=== PATIENT | male | born 1940 | race Caucasian/White ===

== ENCOUNTER → 2017-08-15 | Outpatient (CLI) | payer OTHER ==
[~2017-08-15] MED LIST: CLINDAMYCIN HC300 MG PO; LAC PO; LEVOFLOXACIN500 M1 PO; METFORMIN HCL500 MG PO
== END | disposition home or self-care (01) ==
LOC: US 09:04
PROC: B54DZZZ Ultrasonography of Bilateral Lower Extremity Veins (ICD-10-PCS; principal; 2017-08-15)
PROC: B44HZZZ Ultrasonography of Bilateral Lower Extremity Arteries (ICD-10-PCS; 2017-08-15)
DX: M79.89 Other specified soft tissue disorders (principal)

== ENCOUNTER 2019-04-28 13:09 | Inpatient (IN) | payer OTHER ==
[~2019-04-28] VITALS: Ht 165.1 cm; Wt 77.8 kg
--- NOTE | 2019-04-28 13:13 | NUR ---
PT PLACED IN T1 FOR BEDSIDE TRIAGE.
--- NOTE | 2019-04-28 13:55 | NUR ---
PER PT FAMILY, PT LIVES ALONE AND WAS FOUND AT HOME AFTER HE HAD FALLEN AND HAS BEEN STAYING WITH FAMILY SINCE THEN.
[2019-04-28 13:57] LABS: BASOPHIL % 0.6 % (0-2); PLATELET COUNT 382 x10^3mcL (130-400); RED CELL DISTRIBUTION WIDTH 12.5 % (11.5-14.5)
--- NOTE | 2019-04-28 14:07 | NUR ---
XRAY AT BEDSIDE
--- NOTE | 2019-04-28 14:08 | NUR ---
PT STATED HE NEEDED TO USE THE RESTROOM, GAVE PT URINAL AND UNABLE TO GIVE SAMPLE AT THIS TIME
[2019-04-28 14:37] LABS: T3 TOTAL 0.36 ng/mL
[2019-04-28 14:48] LABS: ALKALINE PHOSPHATASE 91 U/L (46-116); ALT/SGPT 178 U/L (16-63); AST/SGOT 214 U/L (15-37); BILIRUBIN TOTAL 1.4 mg/dL (0.20-1.00); C REACTIVE PROTEIN 8.6 mg/dL (<=0.9); CALCIUM 8.7 mg/dL (8.5-10.1); CARBON DIOXIDE 23.9 mmol/L (21-32); CHLORIDE SERUM 86 mmol/L (98-107); CREATININE SERUM 2.9 mg/dL (0.7-1.3); GLUCOSE SERUM 181 mg/dL (74-106); POTASSIUM SERUM 4.1 mmol/L (3.5-5.1)
[2019-04-28 14:52] LABS: ERYTHROCYTE SED RATE 34 mm/hr (0-20)
[2019-04-28 14:54] LABS: ALBUMIN 3.3 g/dL (3.4-5.0); SODIUM SERUM 119 mmol/L (136-145)
[2019-04-28 15:04] LABS: CK-MB 39.9 ng/mL (0-3.6)
[2019-04-28] MEDS ORDERED: GOOD SENSE OMEP20 MG PO (15:10)
[2019-04-28] MEDS ORDERED: LOVASTATIN20 MG PO (15:11)
[2019-04-28] MEDS ORDERED: LOPRESSOR50 M1 PO (15:11)
[2019-04-28] MEDS ORDERED: METOPROLOL SUCC50 M2 PO (15:11)
[2019-04-28] MEDS ORDERED: ATORVASTATIN CA40 M1 PO (15:11)
[2019-04-28] MEDS ORDERED: ENALAPRIL MALEA10 MG PO (15:12)
[2019-04-28] MEDS ORDERED: AMLODIPINE BESY10 M2 PO (15:12)
[2019-04-28 15:20] LABS: microscopic required? YES; urine erythrocyte 3+ (NEGATIVE)
[2019-04-28 15:37] LABS: FREE T4 1.02 ng/dL (0.76-1.46); FREE THYROXINE INDEX 2.1 ug/dL (1.4-4.5); T4(THYROXINE) 5.7 ug/dL (4.7-13.3)
[2019-04-28 15:50] VITALS: BP 107/62
--- NOTE | 2019-04-28 16:11 | NUR ---
CALLED REPORT TO RAFAEL JEONG TO ASSUME CARE OF PT
--- NOTE | 2019-04-28 16:26 | NUR ---
DR HASTINGS NOTIFIED OF NA 119. DR HASTINGS TELEPHONE ORDERED BMP STAT.
[2019-04-28 17:11] VITALS: BP 91/56
[2019-04-28 17:17] LABS: CALCIUM 7.7 mg/dL (8.5-10.1); CARBON DIOXIDE 20.4 mmol/L (21-32); CHLORIDE SERUM 92 mmol/L (98-107); CREATININE SERUM 2.6 mg/dL (0.7-1.3); GLUCOSE SERUM 153 mg/dL (74-106); POTASSIUM SERUM 3.9 mmol/L (3.5-5.1)
[2019-04-28 17:20] LABS: SODIUM SERUM 123 mmol/L (136-145)
--- NOTE | 2019-04-28 17:42 | NUR ---
RECEIVED PT FROM ER VIA [facility] ACCOMPANIED WITH NURSE, EMT AND PT'S SISTER, PT SEEN, ALERT AND ORIENTED TO SELF ONLY, SLOW SPEECH, HX OF MR, SZ PRECAUTION IN PLACE, BREATHING EVEN AND UNLABORED, LUNG SOUNDS CLEAR, ON ROOM AIR WITH SPO2:100%, NO RESP DISTRESS NOTED, ON TELE#2 NSR, DENIES CHEST PAIN, PULSES PALPABLE, TRACE EDEMA NOTED TO BLE, GENERALIZED WEAKNESS, ABD SOFT AND FLAT WITH ACTIVE BS, NO BM AT THIS TIME, AIR MATTRESS IN PLACE, ECCHYMOSIS TO LEFT BUTTOCKS AND LEFT BACK, INCONTINENT, PRIMARY NURSE-JOSE AT BEDSIDE FOR CONT NURSING CARE
--- NOTE | 2019-04-28 18:43 | NUR ---
PT RESTING IN BED, NO RESPIRATORY DISTRESS NOTED, DENIES PAIN, SITTER AT BEDSIDE, CALL LIGHT WITHIN REACH.
--- NOTE | 2019-04-28 18:43 | NUR ---
CALLED AND SPOKE TO TO VERIFY LASIX ORDER, LASIX 20MG IV X1 DOSE PER . JOSE HALL ASSIGNED TO THIS PT MADE AWARE OF ABOVE.
--- NOTE | 2019-04-28 18:52 | NUR ---
PER DR SPARKS SOFTBALL COACH, MARGO TO GIVE PT LASIX WITH BP 91/56 MAP 66.
--- NOTE | 2019-04-28 19:14 | NUR ---
ENDORSED CARE TO YONAS HALL.
[2019-04-28 20:00] VITALS: BP 98/52
--- NOTE | 2019-04-28 20:00 | NUR ---
PATIENT RECEIVED IN BED DURING BEDSIDE HANDS OFF WITH EYES CLOSED, AWAKEN WHEN NAME CALLED, SPEECFH GARBLED, ORIENTED ONLY TO NAME, DOESNT ANSWER OTHER QUESTIONS ASKED. NOTED BOTH EYES RED AND WITH YELLOW DISCHARGE.BREATHING EVEN AND UNLABORED BS WITH FINE EXPIRATORY WHEEZING UPPER A&P, NO RESP. DISTRESS, FOUND ON ROOM AIR SAT 96-98%. NO S/S NOR INDICATION OF CHEST PAINS, HR=79, SR. IV SITE TO LHAND PATENT AND INTACT NO REDNESS NO INFILTRATION, TAPE SECURED. UNABLE TO ASSESS AMBULATION THIS TIME,NEEDS MAX ASSIST WITH TURNING, NEEDS ANTICIPATED,CALL LIGHT IN REACH. PER AM NURSE PATIENT INCONTINENT OF URINE, PATIENT IS DRY THIS TIME. PATIENT HAD A S/SP FALL AT HOME YESTERDAY SUSTAINED ABRASION TO BILAT KNEES/LEG DRESSING CDI, NOTED A SMALL ABRASION TO RT SIDE OF FACE, ECCHYMOSIS TO LEFT BUTTOCK/BACK/HIP MAURIZIO. TURN 2HRS TO PREVENT PRESSURE SORES, MANUEL SCALE SCORE 16. NO SZ ACTIVITY NOTED, PADDED RAILS UP. SAFETY/FALL PRECAUTIONS MAINTAINED. WILL CONTINUE TO MONITOR.
--- NOTE | 2019-04-28 22:16 | NUR ---
AT 2121- PATIENT HAD A LARGE BROWN LOOSE STOOL, CLEANED AND KEPT DRY.
--- NOTE | 2019-04-28 22:16 | NUR ---
TURNED TO HIS RT SIDE WITH PILLOW SUPPORTING BACK, PLACED AIR MATTRESS, NO MACHINE AVAIL TODAY WIILL FOLLO UP IN AM, OFFLOADED HEEL.WILL CONTINUE TO MONITOR.
--- NOTE | 2019-04-28 23:32 | NUR ---
PATIENT REMAINED WITH EYES CLOSED BUT BRIEFLY OPEN IT WHEN NAME CALLED, LETHARGIC [place],ATTEMPTS TO VERBALIZED BUT WORDS ARE INCOMPREHENSIBLE, TURNED TO HIS LEFT SIDE THIS TIME SUPPORTING BACK WITH PILLOW, SEMI FOWLERS POSITION. DRY THIS TIME. WILL CONTINUE TO MONITOR.
--- NOTE | 2019-04-29 04:00 | NUR ---
TURNED TO HIS LEFT SIDE. NO DISTRESS.
[2019-04-29 05:25] VITALS: BP 106/55
--- NOTE | 2019-04-29 05:26 | NUR ---
REPOSITIONED TO HIS RT SIDE WITH PILLOWS SUPPORTING BACK. HAD X1 LOOSE BRONW STOOL, KEPT CLEAN AND DRY, Z-GUARD APPLIED. WILL CONTINUE TO MONITOR.
--- NOTE | 2019-04-29 05:40 | NUR ---
PATIENT HAD BEEN SLEEPING WELL AND RESTED GOOD DURING THE SHIFT, LESS LETHARGIC AND EASILY AROUSED WHEN NAME IS CALLED WITH GARBLE INCOMPREHENSIBLE SPEECH, COOPERATIVE WITH CARE. INCONTINENT OF UA AND STOOL, KEPT CLEAN AND DRY AT ALL TIME, Z-GUARD INCONTINENT DERMATITIS TO PERINEAL AREA, TURNED AND REPOSITIONED AND KEPT HOB ELEVTED. KEPT O2 AT 2LNC, MOUTH BREATHER, SATURATING WELL. IV SITE NO SIGN OF INFILTRATION. SAFETY/FALL/SEIZURE PREC MAINTAINED AND OSBERVED. WILL ENDORSE CONTINUITY OF CARE TO INCOMING NURSE.
[2019-04-29 06:23] LABS: BASOPHIL % 0.1 % (0-2); PLATELET COUNT 325 x10^3mcL (130-400); RED CELL DISTRIBUTION WIDTH 12.2 % (11.5-14.5)
[2019-04-29 06:41] LABS: ALKALINE PHOSPHATASE 80 U/L (46-116); ALT/SGPT 141 U/L (16-63); AST/SGOT 151 U/L (15-37); BILIRUBIN TOTAL 0.9 mg/dL (0.20-1.00); CALCIUM 7.3 mg/dL (8.5-10.1); CARBON DIOXIDE 19.5 mmol/L (21-32); CHLORIDE SERUM 94 mmol/L (98-107); CREATININE SERUM 2.5 mg/dL (0.7-1.3); GLUCOSE SERUM 150 mg/dL (74-106); MAGNESIUM 2.6 mg/dL (1.8-2.4); PHOSPHOROUS 4.2 mg/dL (2.5-4.9); POTASSIUM SERUM 3.7 mmol/L (3.5-5.1); SODIUM SERUM 126 mmol/L (136-145)
[2019-04-29 06:47] LABS: ALBUMIN 2.7 g/dL (3.4-5.0); TOTAL PROTEIN, SERUM 5.9 g/dL (6.4-8.2)
--- NOTE | 2019-04-29 07:50 | NUR ---
BEDSIDE HANDS OFF AND INTRODUCTION PERFORMED WITH INCOMING NURSE JEAN-PAUL-RN. ALSO SPOKE TO DR VENKATA ELIAS AM WITH NEW ORDER RECEIVED AND ENDORSE TO FOLLOW BY AM NURSE.REPORTED ABOUT RED EYE AND YELLOW DC.
--- NOTE | 2019-04-29 08:01 | NUR ---
A+OX1, GARBLED SPEECH, SLOW SPEECH, SZ PRECAUTIONS, RED EYES WITH YELLOW DISCHARGE, TELE 2, PULSES MODERATE AND EQUAL BETTINA, EDEMA BLE, FINE WHEEZING, 2L NC, BOWEL SOUNDS ACTIVE, LOOSE BM, INCONTINENT, GENERALIZED WEAKNESS, AIR MATTRESS, BETTINA KNEE DRY SCAB/ABRASION WITH DRESSING CDI, ECCHYMOSIS TO BUTTOCKS AND HIPS, MULIPLE ABRASIONS TO SHOULDERS AND ELBOWS, ABRASION TO R FACE, PERIANAL AREA ERYTHEMA, IV IN L HAND WITH NS @ 100 ML/HR, SITE WNL.
[2019-04-29 09:18] VITALS: BP 115/53
--- NOTE | 2019-04-29 09:33 | NUR ---
PT RESTING IN BED, SITTER AT BEDSIDE, NO RESPIRATORY DISTRESS NOTED, DENIES PAIN, CALL LIGHT WITHIN REACH.
--- NOTE | 2019-04-29 11:40 | NUR ---
PT RESTING IN BED, NO RESPIRATORY DISTRESS NOTED, IN NO APPARANT PAIN, APPEARS TO BE SLEEPING WITH BOTH EYES CLOSED, SITTER AT BEDSIDE, CALL LIGHT WITHIN REACH.
--- NOTE | 2019-04-29 13:11 | NUR ---
DINH CATH INSERTED, PT IMMEDIATELY PUT OUT 1000 ML DARK BROWN URINE.
--- NOTE | 2019-04-29 15:45 | NUR ---
PT RESTING IN BED, NO RESPIRATORY DISTRESS NOTED, APPEARS TO BE SLEEPING, SITTER AT BEDSIDE, CALL LIGHT WITHIN REACH.
--- NOTE | 2019-04-29 17:27 | NUR ---
PT RESTING IN BED, NO RESPIRATORY DISTRESS NOTED, IN NO APPARANT PAIN, APPEARS TO BE SLEEPING WITH EYES CLOSED.
[2019-04-29 17:36] VITALS: BP 105/56
--- NOTE | 2019-04-29 18:38 | NUR ---
PT RESTING IN BED, HOB @ 90 DEGREES, HAND PLATE STACKER FEEDING PT, DINH CARE DONE, CALL LIGHT WITHIN REACH.
--- NOTE | 2019-04-29 19:30 | NUR ---
RECEIVED PT FROM DAY SHIFT RN. PT RESTING AT THIS TIME, AROUSABLE WITH TOUCH. PT BREATHING EVEN AND UNLABORED, NC 2L/MIN NO SOB NOTED. RT PROTOCOL. TELE #2. IV LH PATENT, INFUSING WELL. AIR MATTRESS IN PLACE. TOTAL CARE PT. F/C IN PLACE DRAINING. BLE EDEMA NOTED. NO SIGNS OF DISTRESS NOTED. CALL BUTTON WITHIN REACH. SAFETY/SEIZURE PRECAUTIONS. SITTER AT BEDSIDE. WILL CONTINUE TO MONITOR.
--- NOTE | 2019-04-29 19:46 | NUR ---
ENDORSED CARE TO HARLEEN HALL.
[2019-04-29 21:13] VITALS: BP 98/45
[2019-04-29 21:38] VITALS: Ht 165.1 cm; Wt 77.8 kg
--- NOTE | 2019-04-30 00:11 | NUR ---
PT RESTING. BREATHING EVEN AND UNLABORED NC IN PLACE AT 2L/MIN WITH NO SOB NOTED. NO SIGNS OF DISTRESS. CALL BUTTON WITHIN REACH. SAFETY PRECAUTIONS IN PLACE. WILL MONITOR.
--- NOTE | 2019-04-30 04:54 | NUR ---
PT SLEPT MOST OF THE NIGHT WITH NO SIGNS OF DISTRESS. NC 2L/MIN WITH NO SOB NOTED. IV PATENT AND INFUISNG WELL. PT TURN AND REPOSITIONED EVERY TWO HOURS AND NEEDED. F/C IN PLACE DRAINING. MEDICATED PER EMAR. CALL BUTTON WITHIN REACH. SAFETY/SEIZURE PRECAUTIONS IN PLACE. MOTORCYCLE RIDING INSTRUCTOR AT BEDSIDE TO ASSIST PT. NO SIGNS OF ACUTE DISTRESS. WILL CONTINUE TO MONITOR AND ENDORSE CARE TO DAY SHIFT RN.
[2019-04-30 05:34] VITALS: BP 124/57
[2019-04-30 06:53] LABS: ALKALINE PHOSPHATASE 82 U/L (46-116); ALT/SGPT 119 U/L (16-63); AST/SGOT 93 U/L (15-37); BILIRUBIN TOTAL 0.9 mg/dL (0.20-1.00); CALCIUM 7.6 mg/dL (8.5-10.1); CARBON DIOXIDE 23.7 mmol/L (21-32); CHLORIDE SERUM 101 mmol/L (98-107); CREATININE SERUM 1.6 mg/dL (0.7-1.3); GLUCOSE SERUM 148 mg/dL (74-106); PHOSPHOROUS 2.7 mg/dL (2.5-4.9); SODIUM SERUM 136 mmol/L (136-145)
--- NOTE | 2019-04-30 07:03 | NUR ---
RECEIVED BEDSIDE REPORT FROM BUSINESS CONTINUITY SPECIALIST NURSE. PATIENT IS STABLE NO APPARENT SIGNS OF PAIN, SOB, OR RESPIRATORY DISTRESS. ON 2L NC. ON TELE 2. PATIENT IS RESTING COMFORTABLY IN BED. ON AIR MATTRESS. IV TO LEFT HAND INTACT NO EDEMA OR ERYTHEMA NOTED TO SITE. SITTER AT BEDSIDE. SAFETY PRECAUTIONS IN PLACE. SEIZURE PRECAUTIONS IN PLACE.
[2019-04-30 07:07] LABS: ALBUMIN 2.6 g/dL (3.4-5.0)
[2019-04-30 07:10] LABS: POTASSIUM SERUM 2.8 mmol/L (3.5-5.1)
--- NOTE | 2019-04-30 07:25 | NUR ---
PHYSICAL ASSESSMENT COMPLETED PLEASE SEE PROBLEM FOCUSED CARE FOR DETAILS.
--- NOTE | 2019-04-30 07:31 | NUR ---
PT RESTING. NO SIGNS OF DISTRESS NOTED. ENDORSED CARE TO DAY SHIFT RN, ALL QUESTIONS ADDRESSED.
--- NOTE | 2019-04-30 07:42 | NUR ---
RECEIVED BEDSIDE REPORT FROM SLIP FEEDER NURSE. PATIENT IS STABLE NO APPARENT SIGNS OF PAIN, SOB, OR RESPIRATORY DISTRESS. ON 2L NC. ON TELE 2. PATIENT IS RESTING COMFORTABLY IN BED. ON AIR MATTRESS. IV TO LEFT HAND INTACT NO EDEMA OR ERYTHEMA NOTED TO SITE. SITTER AT BEDSIDE. SAFETY PRECAUTIONS IN PLACE. SEIZURE PRECAUTIONS IN PLACE.
--- NOTE | 2019-04-30 07:46 | NUR ---
PAGED MD HASTINGS TO MAKE AWARE POTASSIUM LEVEL 2.8. WAITING F0R TO CALL BACK.
[2019-04-30 08:12] VITALS: BP 102/51
--- NOTE | 2019-04-30 09:04 | NUR ---
ADMINISTERED MEDICATION PER EMAR. PATIENT EDUCATED ON NEED FOR MEDICATION, ASWELL ADVERSE EFFECTS TO REPORT. PATIENT VERBALIZED UNDERSTANIDING. QUESTIONS AND CONCERNS ADDERSSED, SAFETY PRECAUTIONS IN PLACE.
[2019-04-30 09:07] LABS: BASOPHIL % 0.1 % (0-2); PLATELET COUNT 331 x10^3mcL (130-400); RED CELL DISTRIBUTION WIDTH 12.5 % (11.5-14.5)
--- NOTE | 2019-04-30 09:27 | NUR ---
DOCTOR VENKATA MADE AWARE OF POTASSIUM LEVEL 2.8. HE WILL CHANGE AND ADD MEDICATION.
--- NOTE | 2019-04-30 09:54 | NUR ---
RECEIVED ORDERS TO DC HEPARIN DRIP AND IVF. BOTH IVF AND HEPARIN DRIP DC'ED. PATIENT TOLORATED WELL. NO APPARENT SIGNS OF PAIN, SOB OR RESPIRATORY DISTRESS. PATIENT WAS SEEN AMBULATING WITH PHYISCAL THERAPY IN THE HALLWAY.
[2019-04-30 13:19] VITALS: BP 100/51
--- NOTE | 2019-04-30 14:18 | NUR ---
Initial Nutrition Assessment: (210T-B) LORRIE GONZALEZ 78M Dx: Sever dehydration, renal failure, hyponatremia PMHx: CAD, HTN, DLP, mental retardation PSHx: None Labs: Na 136 WNL (improving), K 2.8 L, BG 148 H, BUN 54 H (improving), Cr 1.6 H (improving), Alb 2.6 L, AST 93 H, ALT 119 H, CK 2871 H, Mg 2.6 H Meds: Glucophage, Humulin, Phenergan, Rocephin [facility] PO intake since admission: 15% Ht: 65in Wt: 171# BMI: 28.5 Bed scale: 182.4 IBW: 136# %IBW: 126% UBW: 182 Age: 78 Food Allergies: NKFA Skin: Abrasion BLE/BUE, throughout body, eccymosis buttocks/hips, erythema perineal area Noe: 16 Edema: BLE GI: abd soft/round, active BS Last BM: 04/29 RD Note (04/30): Noted pt w/ rhabdomyolysis, spoke w/ Dr Ferrell regarding renal function, will add Renal diet to pt's [facility] diet order. Visited pt bedside, noted mental retardation per H&P, but adequate communicator. Pt states appetite is alright and eats well. Asked pt if any family is visiting, pt states family is home. Spoke with INCLUSION SPECIAL EDUCATOR and RN, states pt only eats about his food and swallows very slowly, but no c/o of texture. INCLUSION SPECIAL EDUCATOR assists w/ feeding. Pt appropriate for diet supplmentation. Spoke w/ Dr Ferrell and RAFAEL Shelton regarding ONS, confirmed. Problem with: N/V/D/C: None Problems with: Chewing: No Swallowing: No Current appetite: fair Recent wt change: No %wt change: No Vitamin/Supplement use: No Special diet at home: Regular Physical activity: N/A Nutrition education given (specify specific nutrition education and handout given): None given at this time. Food-drug interactions? Education given? None given at this time. Estimated Nutritional Needs Based on current body weight (78 kg) Energy: 3803-9064 kcal/day (25-30 kcal/kg for maintenance) Protein: 47-62 g/day (0.6-0.8 g/kg for renal failure) Fluid: 6533-9951 mL/day (30-35 mL/kcal for rehydration) per MD Nutrition Diagnosis: 1. Inadequate oral intake r/t poor PO, poor appetite AEB PO intake 15% since admission 2. Altered nutrition-related lab values r/t dehydration, renal failure AEB K 2.8, BUN 54, Cr 1.6 Intervention 1. Add Glucerna vanilla TID w/ each meal 2. Add Renal diet (60g) to [facility] diet order Monitor/Evaluate Goal: PO intake at least 75% of estimated needs Monitor: PO intake, Labs, GI function F/U in 2-3 days as high risk 05/02-05/03
--- NOTE | 2019-04-30 14:18 | NUR ---
Recommendations: 1. Add Glucerna vanilla TID w/ each meal 2. Add Renal diet (60g) to [facility] diet order
--- NOTE | 2019-04-30 14:39 | NUR ---
PHYSICAL THERAPY DAILY NOTES CO-SIGN All documentation done by the Ap[facility] for 04/30/19 has been reviewed. I agree with the documentation. Reviewed/Co-Signed by: Aleyda Jacob PT Documentation Done by:YAZMIN GOMES PTA
--- NOTE | 2019-04-30 15:12 | NUR ---
PATIENT IS RESTING COMFORTABLY IN BED. NO APPARENT SIGNS OF PAIN, SOB, OR RESPIRATORY DISTRESS. ON 2L NC. CALL LIGHT AND PHONE WITHIN REACH. BED IN LOW POSITION. PATIENT DENIES OTHER NEEDS AT THIS TIME. SITTER AT BEDSIDE. SAFETY PRECAUTIONS IN PLACE.
--- NOTE | 2019-04-30 17:48 | NUR ---
PAGED MD HASTINGS TO MAKE AWARE COMPLETION SUPERVISOR RECOMMENDED GLUCERNA VANILLA TID WITH EACH MEAL. AND ADD RENAL DIET TO [facility] DIET ORDER. WAITING FOR DOCTOR VENKATA TO CALL BACK.
[2019-04-30 18:07] VITALS: BP 110/55
--- NOTE | 2019-04-30 18:09 | NUR ---
PATIENT IS STABLE NO APPARENT SIGNS OF PAIN, SOB, OR RESPIRATORY DISTRESS. ON SEIZURE PRECAUTIONS, ON 2L NC, IV TO LEFT HAND IS INFUSING WELL NO EDEMA OR ERYTHEMA NOTED TO SITE. PATIENT STATES THROAT HURTS WHEN SWALLOWING FOOD. DINH CATH IN PLACE. SCD'S IN PLACE. QUESTIONS AND CONCERNS ADDRESSED. SAFETY PRECAUTIONS IN PLACE. SITTER AT BED SIDE. WILL ENDORSE CARE TO CAR CLERK PULLMAN NURSE.
--- NOTE | 2019-04-30 19:20 | NUR ---
RECEIVED PT FROM DAY SHIFT RN. PT RESTING IN BED WITH EYES CLOSED. BREATHING EVEN AND UNLABORED. NO SYMPTOMS OF CHEST PAIN OR SHORTNESS OF BREATH ON 2L NASAL CANULA. TELE #[address] SITTER CURRENTLY AT THE BEDSIDE. PT DOES NOT SEEM TO BE IN ANY DISTRESS AT THIS TIME. SEIZURE PRECAUTIONS ARE IN PLACE. BED IS IN THE LOWEST POSITION. CALL LIGHT IS WITHIN REACH. WILL CONITNUE TO MONITOR PT.
--- NOTE | 2019-04-30 19:25 | NUR ---
ENDORSED CARE TO IT APPLICATIONS MANAGER NURSE RADHA.
[2019-04-30 20:21] VITALS: BP 113/53
--- NOTE | 2019-04-30 21:41 | NUR ---
LIFTED PATIENT UP IN BED. PT CURRENTLY WATCHING TELEVISION. NO DISTRESS NOTED. BREATHING EVEN AND UNLABORED. WILL CONITNUE TO MONITOR.
--- NOTE | 2019-04-30 21:41 | NUR ---
PT B ADMINISTERED 4 U REG INSULIN
--- NOTE | 2019-05-01 05:06 | NUR ---
PT SLEPT THROUGHOUT THE NIGHT. NO COMPLAINTS OF PAIN. NO DISTRESS OR SIGNIFICANT CHANGES NOTED. SITTER IS AT THE BEDSIDE. PT CURRENTLY RESTING IN BED BRATHING EVEN AND UNLABORED.
[2019-05-01 06:22] VITALS: BP 122/61
[2019-05-01 06:51] LABS: BASOPHIL % 0.3 % (0-2); PLATELET COUNT 368 x10^3mcL (130-400); RED CELL DISTRIBUTION WIDTH 12.4 % (11.5-14.5)
[2019-05-01 06:53] LABS: CALCIUM 8.9 mg/dL (8.5-10.1); CARBON DIOXIDE 28.5 mmol/L (21-32); CHLORIDE SERUM 108 mmol/L (98-107); CREATININE SERUM 1.2 mg/dL (0.7-1.3); GLUCOSE SERUM 145 mg/dL (74-106); POTASSIUM SERUM 3.9 mmol/L (3.5-5.1); SODIUM SERUM 143 mmol/L (136-145)
[2019-05-01 07:00] LABS: ALKALINE PHOSPHATASE 85 U/L (46-116); ALT/SGPT 98 U/L (16-63); AST/SGOT 68 U/L (15-37); BILIRUBIN TOTAL 1.02 mg/dL (0.20-1.00); CALCIUM 8.1 mg/dL (8.5-10.1); CARBON DIOXIDE 24.3 mmol/L (21-32); CHLORIDE SERUM 107 mmol/L (98-107); GLUCOSE SERUM 140 mg/dL (74-106); MAGNESIUM 1.8 mg/dL (1.8-2.4); PHOSPHOROUS 2.2 mg/dL (2.5-4.9); POTASSIUM SERUM 4.7 mmol/L (3.5-5.1); SODIUM SERUM 141 mmol/L (136-145)
--- NOTE | 2019-05-01 07:03 | NUR ---
RECEIVED BEDSIDE REPORT FROM PIPE ORGAN BUILDER NURSE. PATIENT IS STABLE NO APPARENT SIGNS OF PAIN, SOB, OR RESPIRATORY DISTRESS. PATIENT IS RESTING COMFORTBLY IN BED. ON 2L NC. SEIZURE PRECAUTIONS IN PLACE. ON TELE 2. IV TO LEFT HAND INTACT, NO EDEMA OR ERYTHEMA NOTED TO SITE. CALL LIGHT AND PHONE WITHIN REACH. BED IN LOW POSITION, QUESTIONS AND CONCERNS ADDRESSED. SAFETY PRECAUTIONS IN PLACE.
[2019-05-01 07:06] LABS: ALBUMIN 2.5 g/dL (3.4-5.0); TOTAL PROTEIN, SERUM 5.8 g/dL (6.4-8.2)
[2019-05-01 08:57] VITALS: BP 125/65
--- NOTE | 2019-05-01 09:10 | NUR ---
ADMINISTERED MEDICATIONS PER EMAR. [place]NN EDUCATED ON NEED FOR MEDICATION WELL ADVERSE EFFECTS TO REPORT. VERBALIZED UNDERSTANDING. QUESTIONS AND CONCERNS ADDRESSED. SAFETY PRECAUTIONS IN PLACE.
--- NOTE | 2019-05-01 10:05 | NUR ---
PATIENT IS STABLE, RESTING COMFORTABLY IN BED. NO APPARENT SIGNS OF PAIN, SOB, OR RESPIRATORY DISTRESS. ON 2L NC. SITTER AT BEDSIDE, CALL LIGHT AND PHONE WITHIN REACH. BED IN LOW POSITION. ON TELE #2. SEIZURE PRECAUTIONS IN PLACE. QUESTIONS AND CONCERNS ADDRESSED. SAFETY PRECAUTIONS IN [place].
--- NOTE | 2019-05-01 10:40 | NUR ---
PHYSICAL THERAPY AT BEDSIDE. PATIENT IS SITTING COMFORTABLTY IN BEDSIDE CHAIR. TOLORATING WELL. DENIES PAIN, SOB, OR RESPIRATORY DISTRESS. ON 2L NC. SITTER AT BEDSIDE. SAFETY PRECAUTIONS IN PLACE.
--- NOTE | 2019-05-01 11:01 | NUR ---
PLACED ISLAND DRESSINGS ON WOUNDS TO BILATERAL SHOULDERS AND BILATERAL LOWER LEGS. PATIENT HAS OPEN WOUNDS TO ANTERIOR AND POSTERIOR BILATERAL SHOULDERS. ANTERIOR BILATERAL LOWER LEGS BELOW THE KNEES.
--- NOTE | 2019-05-01 11:21 | NUR ---
ADMINISTERED MEDICATIONS PER EMAR. [place]NN EDUCATED ON NEED FOR MEDICATION WELL ADVERSE EFFECTS TO REPORT. VERBALIZED UNDERSTANDING. QUESTIONS AND CONCERNS ADDRESSED. SAFETY PRECAUTIONS IN PLACE.
[2019-05-01 13:27] VITALS: BP 136/67
--- NOTE | 2019-05-01 13:30 | NUR ---
PAGED MD HASTINGS TO MAKE AWARE OF LAB VALUES FOR CALCIUM 8.1; PHOS 2.2. WAITING FOR MD TO CALL BACK.
--- NOTE | 2019-05-01 14:08 | NUR ---
ADMINISTERED MEDICATIONS PER EMAR. [place]NN EDUCATED ON NEED FOR MEDICATION WELL ADVERSE EFFECTS TO REPORT. VERBALIZED UNDERSTANDING. QUESTIONS AND CONCERNS ADDRESSED. SAFETY PRECAUTIONS IN PLACE.
[2019-05-01 14:56] VITALS: BP 136/67
--- NOTE | 2019-05-01 16:07 | NUR ---
ADMINISTERED MEDICATIONS PER EMAR. [place]NN EDUCATED ON NEED FOR MEDICATION WELL ADVERSE EFFECTS TO REPORT. VERBALIZED UNDERSTANDING. QUESTIONS AND CONCERNS ADDRESSED. SAFETY PRECAUTIONS IN PLACE.
[2019-05-01 17:19] VITALS: BP 133/66
--- NOTE | 2019-05-01 18:23 | NUR ---
PATIENT IS STABLE NO APPARENT SIGNS OF PAIN, SOB, OR RESPIRATORY DISTRESS ON 2L NC. PATIENT RESTING COMFORTABLY IN BED. IV TO LEFT HAND INFUSING WELL, NO EDEMA OR ERYTHEMA NOTED TO SITE. ON SEIZURE PRECAUTIONS. SITTER AT BEDSIDE. WILL ENDORSE CARE TO COMMERCIAL LITIGATION PARALEGAL NURSE.
--- NOTE | 2019-05-01 19:00 | NUR ---
RECEIVED PT FROM DAY SHIFT RN. PT IS ALERT TO SELF ABLE TO FOLLOW COMMANDS AND ABLE TO MAKE NEEDS KNOWN. PT IS CURRENTLY RESTING IN BED WITH SITTER AT THE BEDSIDE. DENIES PAIN AT THIS TIME. NO SIGNS OF SYMPTOMS OF RESPIRATORY DISTRESS ON 2L NASAL CANULA. NO USE OF ACCESSORY MUSCLES OR LABORED BREATHING. TELE MONITOR #[address] ISLAND DRESSING CDI AND INTACT TO SHOULDERS. PT DENIES PAIN IN AREA. DINH CATHETER IN PLACE DRAINING YELLOW URINE. PT TOLERATING WELL. LEFT HAND IV CLEAN DRY AND INTACT. SAFETY MEASURES ARE IN PLACE. BED IN THE LOWEST POSITION. CALL LIGHT WITHIN REACH. SITTER AT BEDSIDE. WILL CONTINUE TO MONITOR PT.
--- NOTE | 2019-05-01 19:05 | NUR ---
ENDORSED CARE TO DENTAL BILLER NURSE RADHA.
[2019-05-01 21:11] VITALS: BP 133/63
--- NOTE | 2019-05-02 00:28 | NUR ---
PT RESTING IN BED WITH SITTER AT THE BEDSIDE WATCHING TV. PT DENIES ANY PAIN AT THIS TIME. THERE ARE NO SIGNS OF DISTRESS. PT RUNNIGN ZOSYN AT 100 ML/HR AND TOLERATING WELL. CALL LIGHT IS WITHIN REACH. WILL CONTINUE TO MONITOR PT.
[2019-05-02 06:14] VITALS: BP 136/68
[2019-05-02 06:35] LABS: ALKALINE PHOSPHATASE 103 U/L (46-116); ALT/SGPT 105 U/L (16-63); AST/SGOT 63 U/L (15-37); BILIRUBIN TOTAL 0.72 mg/dL (0.20-1.00); CALCIUM 8.2 mg/dL (8.5-10.1); CARBON DIOXIDE 28.6 mmol/L (21-32); CHLORIDE SERUM 108 mmol/L (98-107); CREATININE SERUM 1.3 mg/dL (0.7-1.3); GLUCOSE SERUM 184 mg/dL (74-106); MAGNESIUM 1.6 mg/dL (1.8-2.4); PHOSPHOROUS 2.6 mg/dL (2.5-4.9); POTASSIUM SERUM 3.5 mmol/L (3.5-5.1); SODIUM SERUM 144 mmol/L (136-145)
[2019-05-02 06:40] LABS: ALBUMIN 2.4 g/dL (3.4-5.0)
[2019-05-02 06:48] LABS: PLATELET COUNT 362 x10^3mcL (130-400); RED CELL DISTRIBUTION WIDTH 12.6 % (11.5-14.5)
[2019-05-02 07:12] LABS: BASOPHIL % 0 % (0-2)
--- NOTE | 2019-05-02 07:45 | NUR ---
RECEIVED PATIENT SITTING UP IN BED RESTING COMFORTABLY AWAKE/ALERT TO SELF, DENIES CONNER OR DIZZINESS, ABLE TO FOLLOW COMMANDS. BREATHING EVEN AND UNLABBORED ON O2 2 L/MIN VIA NC, DENIES SOB, NO DISTRESS NOTED, HOB ELEVATED. DENIES CHEST PAIN, DENIES ANY OTHER PAIN. IV TO LH LEAKING, H/L, WILL PLACE NEW IV AFTER BREAKFAST. PATIENT WITH DINH CATHETER TO GRAVITY DRAINING YELLOW URINE, TUBING FREE OF KINKS BAG IS OFF FLOOR. PATIENT IS CALM WITH CARE. INSTRUCTED PATIENT TO CALL FOR ASSISTANCE IF NEEDED. SAFETY PRECAUTIONS MAINTAINED. CALL LIGHT WITHIN REACH, BED IN LOW POSITION, BED ALARM ON. WILL MONITOR.
[2019-05-02 08:28] VITALS: BP 135/68
--- NOTE | 2019-05-02 09:45 | NUR ---
PATIENT RESTING IN BED COMFORTABLY WATCHING TELEVISION, NO DISTRESS NOTED. ALL NEEDS ATTENDED TO, SAFETY PRECAUTIONS MAINTAINED. WILL MONITOR.
--- NOTE | 2019-05-02 11:41 | NUR ---
PATIENT RESTING IN BED COMFORTABLY WITH EYES CLOSED, BREATHING EVEN AND UNLABBORED, NO DISTRESS NOTED. ALL NEEDS ATTENDED TO, SAFETY PRECAUTIONS MAINTAINED. WILL MONITOR.
--- NOTE | 2019-05-02 13:25 | NUR ---
PATIENT SITTING UP IN CHAIR AT BEDSIDE, NO DISTRESS NOTED. VISITORS AT BEDSIDE. ALL NEEDS ATTENDED TO, SAFETY PRECAUTIONS MAINTAINED. WILL MONITOR.
--- NOTE | 2019-05-02 14:00 | NUR ---
PATIENT RECEIVED BED BATH ASSISTED BY CLINICAL AUDIOLOGIST'S X2. DINH CARE GIVEN, LINEN CHANGE, Z-GUARD APPLIED TO COCCYX AND PERINEAL AREA. PHOTOGRAPH TAKEN OF WOUND AND NEW OPTIFOAM DRESSING APPLIED TO SACRAL-COCCYGEAL AREA. PATIENT TOLERATED WELL, REPOSITIONED AND MADE COMFORTABLE. ALL NEEDS ATTENDED TO. SAFETY PRECAUTIONS MAINTAINED. WILL MONITOR.
--- NOTE | 2019-05-02 17:36 | NUR ---
PATIENT SITTING UP IN BED EATING DINNER AND WATCHING TELEVISION NO DISTRSS NOTED, TOLERATING DINNER WELL. ALL NEEDS ATTENDED TO, SAFETY PRECAUTIONS MAINTAINED. WILL MONITOR.
[2019-05-02 17:43] VITALS: BP 134/69
--- NOTE | 2019-05-02 19:30 | NUR ---
BEDSIDE REPORT GIVEN TO MALLIKA HALL, ALL QUESTIONS AND CONCERNS ADDRESSED, ALL CARES ENDORSED.
--- NOTE | 2019-05-02 19:40 | NUR ---
RECEIVED REPORT FROM DAY SHIFT RN. PT RESTING COMFORTABLY. AA&O TO PERSON/PLACE. REORIENTED TO TIME. ABLE TO FOLLOW COMMANDS. BREATHING EVEN AND UNLABORED ON O2 2L VIA NC. NO C/O PAIN. NO DISTRESS NOTED. IV TO LEFT WRIST, SALINE LOCKED. DINH CATHETER IN PLACE, DRAINING YELLOW URINE BY GRAVITY. ON AIR MATTRESS. SAFETY MEASURES IN PLACE. BED IN LOWEST POSITION. SIDE RAILS WITH PADS. INSTRUCTED PT TO USE THE CALL LIGHT FOR ASSISTANCE. CALL LIGHT WITHIN EASY REACH.
[2019-05-02 21:39] VITALS: BP 148/67
--- NOTE | 2019-05-03 00:30 | NUR ---
PT RESTING IN BED. BREATHING EVEN AND UNLABORED ON ROOM AIR. NO FACIAL GRIMACING. NO DISTRESS NOTED. SAFETY MEASURES IN PLACE. CALL LIGHT WITHIN REACH. WILL CONTINUE TO MONITOR.
--- NOTE | 2019-05-03 00:30 | NUR ---
PT RESTING IN BED WITH EYES CLOSED. BREATHING EVEN AND UNLABORED ON O2 2L VIA NC. NO FACIAL GRIMACING. NO DISTRESS NOTED. SAFETY MEASURES IN PLACE. CALL LIGHT WITHIN REACH. WILL CONTINUE TO MONITOR.
[2019-05-03 05:13] VITALS: BP 139/70
[2019-05-03 06:35] LABS: ALKALINE PHOSPHATASE 100 U/L (46-116); ALT/SGPT 127 U/L (16-63); AST/SGOT 68 U/L (15-37); CALCIUM 8.7 mg/dL (8.5-10.1); CARBON DIOXIDE 27.4 mmol/L (21-32); CHLORIDE SERUM 105 mmol/L (98-107); CREATININE SERUM 1.1 mg/dL (0.7-1.3); GLUCOSE SERUM 142 mg/dL (74-106); MAGNESIUM 1.6 mg/dL (1.8-2.4); PHOSPHOROUS 3.2 mg/dL (2.5-4.9); POTASSIUM SERUM 3.9 mmol/L (3.5-5.1); SODIUM SERUM 141 mmol/L (136-145)
[2019-05-03 06:36] LABS: BASOPHIL % 0.2 % (0-2); PLATELET COUNT 325 x10^3mcL (130-400); RED CELL DISTRIBUTION WIDTH 12.8 % (11.5-14.5)
[2019-05-03 06:39] LABS: ALBUMIN 2.3 g/dL (3.4-5.0); TOTAL PROTEIN, SERUM 5.9 g/dL (6.4-8.2)
--- NOTE | 2019-05-03 06:50 | NUR ---
PT SLEPT AT LONG INTERVALS. NO SOB ON O2 2L VIA NC. NO C/O PAIN. NO ACUTE DISTRESS NOTED. ABLE TO FOLLOW COMMANDS AND MAKE NEEDS KNOWN. TURNED Q2H. CLEANED PT AND MADE COMFORTABLE. DINH CARE DONE. SAFETY MEASURES MAINTAINED. ALL NEEDS ATTENDED TO. CALL LIGHT WITHIN REACH. WILL ENDORSE CONTINUITY OF CARE TO ONCOMING RN.
--- NOTE | 2019-05-03 07:41 | NUR ---
RECEIVED PT FROM MAINTENANCE PAINTER RN. A/OX2. DENIES CONNER OR DIZZINESS. PT C/O REDNESS TO BILATERAL EYES. PT DENIES ANY PAIN AT THIS TIME. TELE#2. DENIES CHEST PAIN/PRESSURE. RESPIRATIONS EQUAL AND UNLABORED ON 2L NC. DENIES SOB. PT RECEIVED BREATHING TREATMENT. DINH CATHETER IN PLACE DRAINING YELLOW URINE, SECURED TO THIGH, BAG NOT TOUCHING GROUND. MULTIPLE SCABS AND ABRASIONS TO BILATERAL SHOULDERS, ELBOWS AND KNEES COVERED WITH DRESSING, CDI. OPTIFOAM IN PLACE TO COCYX. IV SALINE LOCKED TO LW, NO REDNESS OR SWELLING NOTED. WILL CONTINUE TO MONITOR. CALL LIGHT IN REACH. BED IN LOWEST POSITION.
--- NOTE | 2019-05-03 10:21 | NUR ---
PT SITTING UP IN BED. NO ACUTE RESP DISTRESS NOTED ON RA. PT GIVEN PO MEDS. TOLERATED WELL. IV FLUSHED WELL. MAGNESIUM INFUSING ORDERED. PT DENIES ANY PAIN AT THIS TIME. WILL CONTINUE TO MONITOR. CALL LIGHT IN REACH. BED IN LOWEST POSITION.
[2019-05-03 10:27] VITALS: BP 132/65
--- NOTE | 2019-05-03 11:40 | NUR ---
PT SITTING UP IN BED. NO ACUTE RESP DISTRESS NOTED. IV MAGNESIUM INFUSING ORDERED. NO REDNESS OR SWELLING NOTED. BLOOD SUGAR CHECKED WAS 202. GIVEN 4 UNITS OF REGULAR INSULIN PER SLIDING SCALE. WILL CONTINUE TO MONITOR. CALL LIGHT IN REACH. BED IN LOWEST POSITION.
--- NOTE | 2019-05-03 12:38 | NUR ---
PT SITTING UP IN BED. NO ACUTE RESP DISTRESS NOTED ON 2L NC. FIRST BAG OF IV MAGNESIUM COMPLETE. IV ANTIBIOTICS INFUSING ORDERED. IV PATENT AND INFUSING. NO REDNESS OR SWELLING NOTED. PT SITTING UP IN BED EATING LUNCH. TOLERATING WELL. WILL CONTINUE TO MONITOR. CALL LIGHT IN REACH. BED IN LOWEST POSITION.
--- NOTE | 2019-05-03 13:41 | NUR ---
PT SITTING UP IN BED. NO ACUTE RESP DISTRESS NOTED ON RA. PT DENIES ANY PAIN AT THIS TIME. DRESSING TO BILATERAL KNEES CHANGED, CLEANSED SITE WITH NS, COVERED WITH VERSATEL AND OPTIFOAM DRESSING. DRESSING TO BILATERAL SHOULDER CHANGED, CLEANSED WITH NS, COVERED WITH VERSATEL AND ISLAND DRESSING. PT TOLERATED WELL. EMPTIED 760 ML OF YELLOW URINE FROM DINH. PT PULLED UP IN BED REPOSITIONED ON RT SIDE. WILL CONTINUE TO MONITOR. CALL LIGHT IN REACH, BED IN LOWEST POSITION.
--- NOTE | 2019-05-03 14:03 | NUR ---
Follow-up Nutrition Assessment: ([id number]) LORRIE GONZALEZ 78M Dx: Severe dehydration, renal failure, hyponatremia PMHx: Color blindness, chronic alcoholism Labs: BG 142 H, BUN 21 H, Alb 2.3 L, AST 68 H, ALT 127 H, CK 2871 H, Mg 1.6 L Meds: Humulin, Lopressor, Phenergan Diet: CCHO PO Intake: 30% (improving) Weights: 171# (04/28 @1711) 190# (04/28 @1314) I/Os: 1370/2150 (05/03) 2405/2050 (05/02) 2730/2950 (05/01) 2400/4950 (04/30) Skin: Mult abrasions/scabs B/L shoulders, elbows, and knees, covered w/ dressing CDI Noe: 15 Edema: pulses palpable, trace BLE, B/L knees GI: soft, round, nontender, denies N/V, active BS, denies abd pain at this time Last BM: 05/03 RD Note (05/03): Noted pt w/ Rhabdomyolisis. No recent change in plan for pt, per past two MD Consults 04/30 & 05/03. Visited pt bedside, pt states appetite is good, states does not recive any snacks or oral supplements. No c/o abd pain or N/V/D/C. Pt states continues to receive assistance w/ feeding self. Spoke w/ RN, states pt eating a little bit more, confirms pt receives snacks and ONS w/ meals. PO intake still low, but improving. Noted past two meals ate 100%. Estimated Nutritional Needs Based on current body weight (78 kg) Energy: 9282-8090 kcal/day (25-30 kcal/kg for maintenence) Protein: 47--62 g/day (0.6-0.8 g/kg for renal failure) Fluid: 9319-4256 mL/day (30-35 mL/kcal for dehydration) or per MD Nutrition Diagnosis: . 04/30: Inadequate oral intake r/t poor PO, poor appetite AEB PO intake 15%, since admission 04/30: Altered nutriton-related lab values r/t dehydration, renal failure AEB K 2.8, BUN 54, Cr 1.6 05/03: Inadequate oral intake r/t poor PO, poor appetite AEB PO intake 30% Intervention: 1. Continue to encoruage better PO intake of CCHO diet. Monitor/Evaluate: Goal: Have pt meet at least 75% of estimated needs Monitor: PO intake, Labs, GI function F/U in 3-5 days as moderate risk 05/06-05/08
--- NOTE | 2019-05-03 14:03 | NUR ---
Recommendations: 1. Continue to encoruage better PO intake of CCHO diet
[2019-05-03 16:25] VITALS: BP 138/64
--- NOTE | 2019-05-03 17:12 | NUR ---
PT SITTING UP IN BED. NO ACUTE RESP DISTRESS NOTED ON 2L NC. PT DENIES ANY PAIN AT THIS TIME. BLOOD SUGAR CHECKED WAS 187. GIVEN 2 UNITS OF REGULAR INSULIN PER SLIDING SCALE. IV ANTIBIOITCS INFUSING ORDERED. NO REDNESS OR SWELLING NOTED. EMPTIED 160 ML OF YELLOW URINE FROM DIN[facility]. WILL CONTINUE TO MONITOR. CALL LIGHT IN REACH. BED IN LOWEST POSITION.
--- NOTE | 2019-05-03 17:30 | NUR ---
CALLED AND SPOKE TO AND MADE HIM AWARE THAT CATHERINE([employer] ENGINEER) GOT A SNF BED AT [facility] FOR PT TODAY. NEW ORDER RECEIVED FROM [facility] TO TRANSFER PT TO SNF TODAY AND CONTINUE IV ZOSYN 2.25GM IVPB Q6HRS X 7DAYS. NARCISA HALL ASSIGNED TO THIS PT MADE AWARE OF ABOVE. NARCISA HALL WILL NOTIFY FAMILY OF ABOVE.
[2019-05-03 17:31] VITALS: BP 138/64
[2019-05-03] MEDS ORDERED: AMERINET CHOICE1 PD2 IV (17:43)
--- NOTE | 2019-05-03 18:04 | NUR ---
SPOKE WITH SISTER KIM DIAZ. KIM DIAZ GIVEN CONSENT TO HAVE PT TRANSFER TO [facility] IN [place]. VERIFIED WITH SHAQ HALL.
--- NOTE | 2019-05-03 18:17 | NUR ---
DINH CATHETER REMOVED CATHETER INTACT. PT TOLERATED WELL. EMPTIED 300 ML OF YELLOW URINE. IV TO LW SALINE LOCKED. NO REDNESS OR SWELLING NOTED.
--- NOTE | 2019-05-03 18:32 | NUR ---
[facility] TRANSPORTATION AT BEDSIDE. GIVEN REPORT TO DEMETRIUS CORONADO. PT TAKEN OFF FLOOR VIA [facility]ERNEY ON 2L NC. NO PROBLEMS ENCOUNTERED. PACKET GIVEN TO CLIFF ROMO.
[2019-05-04 07:06] LABS: CK-BB 0 % (0); CK-MB 0 % (0-3); CK-MM 97 % (97-100); MACRO TYPE 1 3 % (Not Observed); MACRO TYPE 2 0 % (Not Observed)
== END 2019-05-03 18:42 | DRG 177 ==
LOC: ED 13:09 → DU 15:31 → EDBEDREQ 15:32 → DU 16:37 → MU 05-03 11:42
PROVIDERS: Internal Medicine; Specialist; ADMIT Internal Medicine
DX: J69.0 Pneumonitis due to inhalation of food and vomit (principal); J96.01 Acute respiratory failure with hypoxia; E87.1 Hypo-osmolality and hyponatremia; N17.9 Acute kidney failure, unspecified; M62.82 Rhabdomyolysis; E11.65 Type 2 diabetes mellitus with hyperglycemia; K21.9 Gastro-esophageal reflux disease without esophagitis; E86.0 Dehydration; K44.9 Diaphragmatic hernia without obstruction or gangrene; I10 Essential (primary) hypertension; F79 Unspecified intellectual disabilities; H10.9 Unspecified conjunctivitis; E83.39 Other disorders of phosphorus metabolism; J32.2 Chronic ethmoidal sinusitis; J32.1 Chronic frontal sinusitis; E78.5 Hyperlipidemia, unspecified; Z68.26 Body mass index [BMI] 26.0-26.9, adult; Z79.84 Long term (current) use of oral hypoglycemic drugs
CPT/HCPCS: 36600; 82962; 84439; 97110-GP; 97116-GP; 97530-GP; G0378; J0696; J1644; J1940; J2060; J2543; J3475; J7030; J7050; J7060; J7620